=== PATIENT | female | born 1980 | race Hispanic/Latino ===

== ENCOUNTER 2022-09-04 07:02 | Day surgery (SDC) | payer BC, OTHER ==
--- NOTE | 2022-08-29 15:12 | RAD REPORT ---
EXAM DESCRIPTION: RAD - Chest Pa And Lat (2 Views) - 08/29/2022 3:02 pm CLINICAL HISTORY: PREOP COMPARISON: No comparisons FINDINGS: Lines: None. Lungs: No evidence of edema or pneumonia. Pleural: No significant pleural effusions or pneumothorax. Cardiac: The heart size is within normal limits. Mediastinum: Within normal limits. Bones: No acute fractures. Other: None IMPRESSION: No acute cardiopulmonary disease.
[2022-08-29 15:19] LABS: Absolute Lymphocytes (CBC) 2.8 K/uL (0.7-4.9); Hematocrit 37.6 % (36.0-45.0); Lymphocytes % 22.8 % (15.3-44.8); MCV 78.2 fL (80-100); MPV 10.1 fL (7.6-11.3); RBC Red Blood Cell Count 4.81 M/uL (3.86-4.86)
[2022-08-29 15:35] LABS: Potassium 3.6 mmol/L (3.5-5.1)
--- NOTE | 2022-08-30 12:53 | EKG ---
Test Date: 2022-08-29 Test Time: 14:38:43 Shank Boner: DIANA MEASUREMENT RESULTS: Intervals: Rate: 73 PA: 150 QRSD: 88 QT: 360 QTc: 396 [place]: P: 66 PA: 150 QRS: 51 T: 44 INTERPRETIVE STATEMENTS: Normal sinus rhythm with sinus arrhythmia Normal ECG No previous ECG available for comparison Electronically Signed On 08-30-22 12:51:46 [employer]ING [employer] by Vadim Ayala
[2022-09-04] MEDS ORDERED: Ringers Lactate 1,000 ML IV ONE (07:21)
[2022-09-04] MEDS ORDERED: KETOROLAC 30 MG/ML INJ ONE (07:22)
[2022-09-04] MEDS ORDERED: MIDAZOLAM HCL 2 MG/2 ML INJ ONE (07:22)
[2022-09-04] MEDS ORDERED: ROCURONIUM 50 MG/5 ML VIAL IV ONE (07:22)
[2022-09-04] MEDS ORDERED: propofoL 200 MG/20 ML VIAL IV ONE (07:22)
[2022-09-04] MEDS ORDERED: dexAMETHasone 10 MG/ML VIAL ONE (07:22)
[2022-09-04] MEDS ORDERED: FENTANYL CITR 100 MCG/2 ML ONE ×2 (07:22→09:52)
[2022-09-04] MEDS ORDERED: LIDOCAINE 2% MPF 5 ML VIAL ONE (07:22)
[2022-09-04] MEDS ORDERED: ONDANSETRON 4 MG/2 ML VIAL ONE ×2 (07:22→10:59)
[2022-09-04] MEDS ORDERED: CEFAZOLIN SODIUM 1 GM/VIAL ONE (07:51)
[2022-09-04 08:41] LABS: Urine Specific Gravity/Preg >1.030 (1.005-1.030)
[2022-09-04] MEDS ORDERED: CIPROFLOXACIN 400mg IV 400 MG/200 ML BAG IV ONE (09:10)
[2022-09-04] MEDS ORDERED: GLYCOPYRROLATE 0.2 MG/ML SYR ONE (10:16)
[2022-09-04] MEDS ORDERED: NEOSTIGMINE 1 MG/ML -5 ML ONE (10:17)
--- NOTE | 2022-09-04 10:23 | P.BOP ---
Preoperative diagnosis: abd pain, incarcerated ventral hernia Postoperative diagnosis: abd pain, incarcerated ventral hernia and umbilical hernia Primary procedure: Laparoscopic repair incarcerated ventral and umbilical hernia with mesh Secondary procedure: Laparoscopic lysis of adhesions Diesel Engine Specialist: PATRICIA FUENTES (ZIPPER JOINER) Estimated blood loss: <10cc Specimen: ventral and umbilical hernia sac Findings: ventral and umbilical hernia, intrabdominal adhesions Anesthesia: General Complications: None Implants: ventralight ST with ECHO PS, sorbafix Transferred to: Recovery Room Condition: Good
[2022-09-04] MEDS: HYDROMORPHONE HCL 1 MG/ML INJ ONE ×2 (11:00→11:05)
[2022-09-04] MEDS ORDERED: MEPERIDINE HCL 25 MG/ML SYR ONE (11:12)
[2022-09-04] MEDS ORDERED: HYDROMORPHONE HCL 1 MG/ML INJ ONE (11:12)
[2022-09-04] MEDS ORDERED: CODEINE 30MG/APAP 300MG TAB ONE (11:40)
[2022-09-04 11:52] VITALS: BP 123/63; TEMP 97.4
[2022-09-04 14:49] VITALS: O2SAT 100
--- NOTE | 2022-09-04 22:08 | OP ---
Date of Procedure: 09/04/2022 Surgeon: Ramana Wynne MD Front Desk Manager: REYNALDO Liriano. Diagnoses: Incarcerated ventral and incarcerated umbilical hernia with abdominal pain, intraabdomina l adhesions. Postoperative Diagnoses: Incarcerated ventral and incarcerated umbilical hernia with abdominal pain, intraabdominal adhesions. Procedures: Laparoscopic repair of incarcerated ventral and incarcerated umbilical hernia with mesh. Laparoscopic lysis of adhesion. Estimated Blood Loss: Less than 10 cc. Specimen: Ventral and umbilical hernia sac. Findings: The patient has a large ventral hernia, but also during the evaluation laparoscopically, w jonah noticed the patient to also have umbilical hernia, so we proceeded to fix both of them at the same time. We have to put stitches apart, but when we select the mesh, we want to make sure we include 2 in 1 piece of mesh, so we selected a Ventralight ST mesh with echo positioning system to overlap each area about 3-5 cm and we used for fixation SorbaFix. Complications: None. Description Of Procedure: The patient was brought to the operating room, placed in supine position. Anesthesia was done without complication. Abdominal area was prepped and draped in a sterile fashio n. Local anesthesia was applied followed by sharp incision of the skin in the ventral region. Incis ion was carried down to fascia. We noticed a large hernia present. Carefully identified the fascia and the hernia neck region. I proceeded to open the hernia sac. We noticed incarcerated omentum, an d carefully, we were releasing that omentum back into the abdominal cavity. Some of that have to be reduced with the help of the laparoscopic technique, since we have some of that it cannot be reduced through this area. We removed the hernia sac. We noticed the defect to be large. When we removed t he hernia sac, we placed a Prolene #1 inside the fascia in a [id number] fashion, multiple times. We did not tie them since we have to obtain pneumoperitoneum and remove the rest of adhesions so we can put a mesh in her since the fascia is not a good quality on that area. Once we did that, we als o noticed the patient to have an umbilical hernia, so we opened the umbilical hernia sac, reduced the omentum, removed the hernia sac, closed that defects with #1 Prolene in a [id number] fashion. After that, I placed a Macarena trocar, obtained pneumoperitoneum. Placed 2 trocars 5 mm each one of t hem on the right and left abdomen, and using that, we proceeded to approximate the midline not tight, but just holding it together to obtain pneumoperitoneum. That allowed me to select a size about 20 x 15 cm that covered the 2 defects and also overlapped the area by 3 to 5 cm. We used a Ventralight ST mesh, put it inside the abdomen, inflated the balloon. Then, proceeded to fixate the area with a SorbaFix. At this moment, we tied all the stitches on the ventral region. We fixed that hernia at l east, repaired the fascia except 1. This allowed me to then fixate the mesh even more with the help of a SorbaFix circumferentially to make sure the intestines do not get in between. At that moment, t hen we deflated the balloon and removed the balloon from the abdominal cavity and inspected intact. The last stitch closing the abdomen seems to be water and air leak proof. At that moment, we inspect ed the area of lysis of adhesions. I have to mention with the help of LigaSure, before we put the me sh, we have to mobilize the falciform ligament and patient also having infraumbilical ventral adhesio ns that have to be removed in order for the mesh to be nice and flat. This was done with the help of a LigaSure and we made sure we have complete hemostasis at all time. When we finished that part and put the mesh in place, then we removed the trocars under direct vision, deflated pneumoperitoneum, c losed the subcutaneous tissue with 3-0 chromic, then the skin was approximated. Sponge count, instru ment counts were correct. The patient tolerated the procedure well. The patient was sent to recover y in stable condition. Disposition: Home. Activity: As tolerated. Instructions: No heavy lifting. Follow up in my office in 1 week. Call for appointment at [phone] . Keep area dry for 48 hours, then may shower. BETHANY/MICHELL Voice ID: [id number] Report ID: [id number]
== END 2022-09-04 12:35 | disposition home or self-care (01) ==
LOC: OR 07:02
PROVIDERS: ATTEND Surgery
PROC: 0WUF4JZ Supplement Abdominal Wall with Synthetic Substitute, Percutaneous Endoscopic Approach (ICD-10-PCS; principal; 2022-09-04 08:30)
DX: K43.6 Other and unspecified ventral hernia with obstruction, without gangrene (principal); K42.0 Umbilical hernia with obstruction, without gangrene
CPT/HCPCS: 36415; 71046; 80048; 81025; 85025; 88302; 93005; J0690; J0744; J1100; J1170; J2001; J2175; J2250; J2405; J2704; J2710; J3010; J7120